=== PATIENT | female | born 1985 | race African-American/Black ===

== ENCOUNTER 2024-07-17 21:49 | Emergency (ER) | payer SELFPAY ==
[~2024-07-17] VITALS: Ht 157.5 cm; Wt 93.2 kg
[2024-07-17 21:54] VITALS: O2SAT 100
[2024-07-17 22:19] VITALS: TEMP 36.8; O2SAT 99
[2024-07-17 22:39] VITALS: BP 145/88; PULSE 92; RESP 18
[2024-07-17] MEDS: HYDROCODONE/ACETAMINOPHEN 5/325MG TABLET PO ONE (22:39)
[2024-07-17] MEDS: LIDOCAINE HCL/PF 1% 10 MG/ML 5ML VIAL INFIL ONE ×2 (22:40→23:58)
[2024-07-17] MEDS: BACITRACIN ZINC OINT UDPKT TOP ONE (22:40)
[2024-07-18] MEDS ORDERED: SULF1TAB48 MT (00:19)
[2024-07-18] MEDS ORDERED: CEPH500C2 MT (00:19)
[2024-07-18] MEDS: SULFAMETHOXAZOLE/TRIMETHOPRIM 800/160MG TABLET PO ONE (00:44)
[2024-07-18] MEDS: CEPHALEXIN 250MG CAPSULE PO ONE (00:44)
== END 2024-07-18 00:52 | disposition home or self-care (01) ==
LOC: ER 21:49
DX: L02.412 Cutaneous abscess of left axilla (principal)
CPT/HCPCS: 99284; 10061; J2003

== ENCOUNTER 2024-09-15 11:58 | Emergency (ER) | payer SELFPAY ==
[~2024-09-15] VITALS: Ht 160 cm; Wt 94.0 kg
[~2024-09-15 11:58] MED LIST: CEPH500C2 MT; SULF1TAB48 MT
[2024-09-15 12:10] VITALS: TEMP 36.7; O2SAT 99
[2024-09-15] MEDS ORDERED: BACITRACIN ZINC OINT UDPKT TOP ONE (12:45)
[2024-09-15] MEDS ORDERED: LIDOCAINE HCL/PF 1% 10 MG/ML 5ML VIAL INFIL ONE (12:45)
[2024-09-15] MEDS ORDERED: SULF1TAB48 MT (14:44)
[2024-09-15 15:12] VITALS: BP 137/95; PULSE 83; RESP 15; O2SAT 100
== END 2024-09-15 15:13 | disposition home or self-care (01) ==
LOC: ER 11:58
DX: N76.4 Abscess of vulva (principal)
CPT/HCPCS: 99284; 56405; J2003